=== PATIENT | male | born 1975 | race Caucasian/White ===

== ENCOUNTER 2020-06-22 19:58 | Observation (INO) | payer BC ==
--- OUTSIDE RECORDS SUMMARY | 2020-06-22 20:01 | XMS REPORT | Continuity of Care Document ---
:1975 Author Organization [facility] t Address [address] [place] [address] Care Team Providers Name Role Phone Ita Royal MD Attending Clinician Problems This patient has no known problems. Allergies, Adverse Reactions, Alerts This patient has no known allergies or adverse reactions. Medications This patient has no known medications. Procedures This patient has no known procedures. Encounters Start End Encounter Admission Attending Care Care Encounter Source Date/Time Date/Time Type Type Clinicians Facility Department ID 2020-05-30 2020-05-30 [facility] [id number] 10:30:00 23:59:00 Encounter Alton fontanez [id number] Amanda [id number] [place] [id number] Results This patient has no known results.
[2020-06-22 21:11] LABS: Absolute Lymphocytes (CBC) 2.2 K/uL (0.7-4.9); Basophils % 0.5 % (0-1.3); Hematocrit 48.6 % (39.6-49.0); Lymphocytes % 27.4 % (15.3-44.8); MPV 9.5 fL (7.6-11.3); RBC Red Blood Cell Count 5.55 M/uL (4.33-5.43)
[2020-06-22 21:25] LABS: Bilirubin Direct 0.1 mg/dL (0-0.2); Bilirubin Total 0.4 mg/dL (0.2-1.0)
--- NOTE | 2020-06-22 23:51 | EDPHYS ---
Physician Documentation [facility] Name: Ranjeet rWay Jr Age: 45 yrs Sex: Male : 1975 Arrival Date: 06/22/2020 Time: 20:06 Bed 7 Private MD: Dea Smart ED Physician Angus Azul HPI: 06/22 20:40 This 45 yrs old Male presents to ER via Ambulatory with complaints of Rectal rn Bleeding, Post Surgical Bleeding. 20:40 The patient presents to the emergency department with bleeding from the rectum/anus. rn Onset: The symptoms/episode began/occurred 2 day(s) ago. Context: the patient is post surgical. Modifying factors: The symptoms are alleviated by nothing, The symptoms are aggravated by bowel movement. The patient has not experienced similar symptoms in the past. The patient has been recently seen by a physician:. Reports just had colonoscopy this past Tuesday, was spotting , stopped, restarted aspirin, then started to pass bright red blood with clots for 2 days. Is lightheaded and concerned. NO syncope/sob. Reports takes aspirin due to elevated RBC. . Historical: - Allergies: 20:23 No Known Allergies; jd3 - Home Meds: 20:23 lisinopril 2.5 mg Oral tab [Active]; rosuvastatin oral oral [Active]; aspirin Oral jd3 [Active]; - PMHx: 20:23 Hypertension; high red blood cells; High Cholesterol; jd3 - PSHx: 20:23 teeth; left arm; jd3 - Immunization history:: Adult Immunizations up to date. - Social history:: Smoking status: Patient denies any tobacco usage or history of. - Family history:: not pertinent. - Hospitalizations: : No recent hospitalization is reported. ROS: 20:40 Constitutional: Negative for fever, chills, and weight loss, Eyes: Negative for injury, rn pain, redness, and discharge, Neck: Negative for injury, pain, and swelling, Cardiovascular: Negative for chest pain, palpitations, and edema, Respiratory: Negative for shortness of breath, cough, wheezing, and pleuritic chest pain, Abdomen/GI: Negative for nausea, vomiting, diarrhea, and constipation, MS/Extremity: Negative for injury and deformity, Skin: Negative for injury, rash, and discoloration, Neuro: Negative for headache, weakness, numbness, tingling, and seizure. Exam: 20:40 Constitutional: This is a well developed, well nourished patient who is awake, alert, rn and in no acute distress. Head/Face: Normocephalic, atraumatic. Eyes: Normal conjunctivae Cardiovascular: Regular rate and rhythm. No pulse deficits. Respiratory: No increased work of breathing, no retractions or nasal flaring. Abdomen/GI: soft, non-tender MS/ Extremity: Pulses equal, no cyanosis. Neurovascular intact. Full, normal range of motion. Equal circumference. Neuro: Awake and alert, GCS 15 Vital Signs: 20:23 BP 173 / 84; Pulse 78; Resp 18 S; Temp 98.7(O); Pulse Ox 100% on R/A; Weight 97.52 kg jd3 (R); Height 6 ft. 1 in. (185.42 cm) (R); Pain 0/10; 23:31 BP 135 / 84; Pulse 85; Resp 18; Pulse Ox 98% on R/A; mg2 20:23 Body Mass Index 28.37 (97.52 kg, 185.42 cm) jd3 MDM: 20:28 Patient medically screened. rn 23:18 Differential diagnosis: bleeding from polyp removal site, anemia. Data reviewed: vital rn signs, nurses notes, lab test result(s), radiologic studies, CT scan, and as a result, I will admit patient. Counseling: I had a detailed discussion with the patient and/or guardian regarding: the historical points, exam findings, and any diagnostic results supporting the discharge/admit diagnosis, lab results, radiology results, the need for further work-up and treatment in the hospital. ED course: Awaiting call back from Patient's GI doctor who performed the colonoscopy this week. . 23:38 ED course: Contacted Dr. Royal [facility] who performed the procedure, states rn regretfully unable to take patient as transfer as has previous commitments today and tomorrow. Requests patient be admitted here and anticipates withholding aspirin will allow to stop on its own. Will admit to Hospitalist service and consult Dr. Bean. Bleeding is already improving. 06/22 20:39 Order name: Basic Metabolic Panel; Complete Time: 21:35 rn 06/22 20:39 Order name: CBC with Diff; Complete Time: 21:35 rn 06/22 20:39 Order name: Hepatic Function; Complete Time: 21:35 rn 06/22 20:39 Order name: Lipase; Complete Time: 21:35 rn 06/22 20:39 Order name: CT Abd/Pelvis - IV Contrast Only rn 06/22 20:39 Order name: Type And Screen rn 06/22 20:39 Order name: IV Saline Lock; Complete Time: 21:04 rn 06/22 20:39 Order name: Labs collected and sent; Complete Time: 21:04 rn Administered Medications: No medications were administered Disposition: 06/22/20 23:51 Hospitalization ordered by Doug Azul for Observation. Preliminary diagnosis is Rectal bleeding s/p colonscopy and polyp removal. - Bed requested for Telemetry/MedSurg (observation). - Status is Observation. mg2 - Condition is Stable. - Problem is new. - Symptoms have improved. Signatures: Dispatcher [employer] EDMS Angus Azul MD MD rn Garcia, Cindy, RN RN Lupillo Goodson RN RN jJak Madsen RN RN mg2 Corrections: (The following items were deleted from the chart) 06/23 00:11 06/22 23:51 Hospitalization Ordered by Doug Azul MD for Observation. Preliminary cg diagnosis is Rectal bleeding s/p colonscopy and polyp removal. Bed requested for Telemetry/MedSurg (observation). Status is Observation. Condition is Stable. Problem is new. Symptoms have improved. rn 06/23 00:29 00:11 06/22/2020 23:51 Hospitalization Ordered by Doug Azul MD for Observation. mg2 Preliminary diagnosis is Rectal bleeding s/p colonscopy and polyp removal. Bed requested for Telemetry/MedSurg (observation). Status is Observation. Condition is Stable. Problem is new. Symptoms have improved. cg
--- NOTE | 2020-06-22 23:51 | ER ---
Nurse's Notes [facility] Name: Ranjeet Wray Jr Age: 45 yrs Sex: Male : 1975 Arrival Date: 06/22/2020 Time: 20:06 Bed 7 Private MD: Dea Smart Diagnosis: Rectal bleeding s/p colonscopy and polyp removal Presentation: 06/22 20:17 Chief complaint: Patient states: "i have been bleeding all day. every time I pass gas jd3 or have a bm I bleed. I had a colonoscopy on Tuesday and I was only spotting, but today it has been every time I go to the restroom. my GI doc already knows, but I didn't want it to get to late and have me gets worse. on Tuesday they removed a growth.". Coronavirus screen: At this time, the client does not indicate any symptoms associated with coronavirus-19. Ebola Screen: Patient negative for fever greater than or equal to 101.5 degrees Fahrenheit, and additional compatible Ebola Virus Disease symptoms. Initial Sepsis Screen: Does the patient meet any 2 criteria? No. Patient's initial sepsis screen is negative. Does the patient have a suspected source of infection? No. Patient's initial sepsis screen is negative. Risk Assessment: Do you want to hurt yourself or someone else? Patient reports no desire to harm self or others. Onset of symptoms was June 22, 2020. 20:17 Method Of Arrival: Ambulatory jd3 20:17 Acuity: ZION 3 jd3 Historical: - Allergies: 20:23 No Known Allergies; jd3 - Home Meds: 20:23 lisinopril 2.5 mg Oral tab [Active]; rosuvastatin oral oral [Active]; aspirin Oral jd3 [Active]; - PMHx: 20:23 Hypertension; high red blood cells; High Cholesterol; jd3 - PSHx: 20:23 teeth; left arm; jd3 - Immunization history:: Adult Immunizations up to date. - Social history:: Smoking status: Patient denies any tobacco usage or history of. - Family history:: not pertinent. - Hospitalizations: : No recent hospitalization is reported. Screenin:43 Abuse screen: Denies threats or abuse. Nutritional screening: No deficits noted. ea Tuberculosis screening: No symptoms or risk factors identified. Fall Risk None identified. Assessment: 20:42 General: Appears in no apparent distress. Behavior is calm, cooperative, appropriate ea for age. Pain: Denies pain. Neuro: Level of Consciousness is awake, alert, obeys commands, Oriented to person, place, time. Cardiovascular: Patient's skin is warm and dry. Respiratory: Airway is patent Respiratory effort is even, unlabored, Respiratory pattern is regular, symmetrical. Derm: Skin is intact, Skin is dry, Skin is pale. 21:39 Reassessment: Patient and/or family updated on plan of care and expected duration. Pain ea level reassessed. Patient is alert, oriented x 3, equal unlabored respirations, skin warm/dry/pink. 22:15 Reassessment: Patient and/or family updated on plan of care and expected duration. Pain ea level reassessed. Patient is alert, oriented x 3, equal unlabored respirations, skin warm/dry/pink. Pt taken to CT. 23:31 Reassessment: Patient appears in no apparent distress at this time. Patient and/or mg2 family updated on plan of care and expected duration. Pain level reassessed. Patient is alert, oriented x 3, equal unlabored respirations, skin warm/dry/pink. 23:31 Reassessment: Patient and/or family updated on plan of care and expected duration. Pain ea level reassessed. Patient is alert, oriented x 3, equal unlabored respirations, skin warm/dry/pink. Provider at bedside updating pt on plan of care. Vital Signs: 20:23 BP 173 / 84; Pulse 78; Resp 18 S; Temp 98.7(O); Pulse Ox 100% on R/A; Weight 97.52 kg jd3 (R); Height 6 ft. 1 in. (185.42 cm) (R); Pain 0/10; 23:31 BP 135 / 84; Pulse 85; Resp 18; Pulse Ox 98% on R/A; mg2 20:23 Body Mass Index 28.37 (97.52 kg, 185.42 cm) jd3 ED Course: 20:06 Patient arrived in ED. am2 20:06 Dea Smart MD is Private Physician. am2 20:21 Triage completed. jd3 20:24 Arm band placed on. jd3 20:28 Angus Azul MD is Attending Physician. rn 20:40 Cathy Broussard, RN is Primary Nurse. ea 20:43 Patient has correct armband on for positive identification. Placed in gown. Bed in low ea position. Call light in reach. Side rails up X 1. Pulse ox on. NIBP on. 20:55 Inserted saline lock: 20 gauge in right forearm, using aseptic technique. ,using ea aseptic technique. Per Taryn DURHAM Blood collected. 22:31 CT Abd/Pelvis - IV Contrast Only In Process Unspecified. EDMS 23:50 Doug Azul MD is Hospitalizing Provider. rn Administered Medications: No medications were administered Outcome: 23:51 Decision to Hospitalize by Provider. rn 06/23 00:29 Patient left the ED. mg2 Signatures: Dispatcher [employer] EDMS Angus Azul MD MD rn Moreno, Amanda am2 Antunez, Elena, RN Lupillo Marcelino ea, RN RN jJak Madsen RN RN mg2
--- NOTE | 2020-06-23 00:11 | P.HP ---
Certification for Inpatient Patient admitted to: Observation With expected LOS: <2 Midnights Patient will require the following post-hospital care: None Practitioner: I am a practitioner with admitting privileges, knowledge of patient current condition, hospital course, and medical plan of care. Services: Services provided to patient in accordance with Admission requirements found in Title 42 Section 412.3 of the Code of Federal Regulations <Benito Hussein - Last Filed: 06/23/20 00:06> Patient History Date of Service: 06/23/20 Reason for admission: GIB History of Present Illness: 45-year-old male history of hypertension hyperlipidemia had a colonoscopy on Tuesday of this week. Patient some mild spotting after the colonoscopy but the bleeding stopped shortly after. Patient had no bleeding for couple of days and then began taking his baby aspirin which she takes for elevated red blood cell count. After he began taking aspirin he started noticed today that he is having some bright red blood per rectum and passing some clots. Patient was then evaluated in the emergency department. Patient had colonoscop y with Dr. Herbert who regrettably but unable to accept the patient tonight or tomorrow but stated that the patient was still having bleeding and needed further evaluation he had happily accept the patient on Tuesday. Patient's hemoglobin in the emergency department was 16. Patient reports the bleeding has slowed down at this time. ED provider wishes to admit patient for observation. 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 - Family History Family History: Reviewed- Non-Contributory - Social History Smoking Status: Never smoker Alcohol use: No CD- Drugs: No Caffeine use: Yes Place of Residence: Home <Benito Hussein - Last Filed: 06/23/20 00:06> Date of Service: 06/26/20 <Doug Azul - Last Filed: 06/26/20 20:35> Allergies No Known Allergies Allergy (Verified 06/23/20 00:53) Home Medications: Aspirin [Adult Low Dose Aspirin EC] 81 mg PO DAILY 06/23/20 Rosuvastatin [Crestor*] 10 mg PO BEDTIME 06/23/20 lisinopriL [Prinivil*] 2.5 mg PO DAILY 06/23/20 Pantoprazole [Protonix Tab] 40 mg PO DAILY 30 Days #30 tab 06/24/20 Review of Systems 10-point ROS is otherwise unremarkable Gastrointestinal: Hematochezia <Benito Hussein - Last Filed: 06/23/20 00:06> Physical Examination - Physical Exam General: Alert, In no apparent distress HEENT: Atraumatic, PERRLA, Mucous membr. moist/pink Neck: Supple Respiratory: Clear to auscultation bilaterally, Normal air movement Cardiovascular: Regular rate/rhythm, Normal S1 S2 Gastrointestinal: Normal bowel sounds, No tenderness Musculoskeletal: No tenderness Integumentary: No rashes Neurological: Normal speech, Normal strength at 5/5 x4 extr, Normal tone, Normal affect - Studies Laboratory Data (last 24 hrs) 06/22/20 20:50: WBC 7.9, Hgb 16.6, Hct 48.6, Plt Count 177 06/22/20 20:50: Sodium 142, Potassium 4.0, BUN 15, Creatinine 1.03, Glucose 88, Total Bilirubin 0.4, AST 20, ALT 41, Alkaline Phosphatase 80, Lipase 68 L <Benito Hussein - Last Filed: 06/23/20 00:06> Assessment and Plan - Plan Assessment Gastrointestinal hemorrhage S/P colonoscopy Elevated red blood cell count Hypertension Hyperlipidemia Plan Gastrointestinal hemorrhage S/P colonoscopy: Hemoglobin 16 in the emergency department. Will repeat labs in the morning. Clear liquid diet for now in case patient requires an another colonoscopy for evaluation. Gastroenterology has been consulted. If patient is still having bleeding after discontinuation of aspirin and is stable his life skills coordinator will accept him as a transfer Tuesday. SCD for DVT prophylaxis as patient is having active bleeding. Elevated red blood cell count: Patient is being worked up by hematology for this. Has appointment to receive results this week. Hold daily aspirin at this time due to active bleeding. Hypertension: Have continued patient's home medications. Hyperlipidemia: Have continued patient's home medications. Discharge Plan: Home Plan to discharge in: 24 Hours - Advance Directives Does patient have a Living Will: No Does patient have a Durable POA for Healthcare: No - Code Status/Comfort Care Code Status Assessed: Yes (Patient is full code) Critical Care: No Time Spent Managing Pts Care (In Minutes): 55 <Benito Hussein - Last Filed: 06/23/20 00:06> Physician Review Additional Text: I reviewed the plan of care for this patient on 06/23/20 by Benito Boothe, and I agree with the management as noted above. <Doug Azul - Last Filed: 06/26/20 20:35>
[2020-06-23] MEDS ORDERED: ACETAMINOPHEN 500 MG TAB PO PRN (00:36)
[2020-06-23 03:09] VITALS: BMI 28.5
[2020-06-23 03:41] LABS: Absolute Lymphocytes (CBC) 2.8 K/uL (0.7-4.9); Basophils % 0.3 % (0-1.3); Hematocrit 46.8 % (39.6-49.0); MPV 9.4 fL (7.6-11.3); RBC Red Blood Cell Count 5.31 M/uL (4.33-5.43)
[2020-06-23] MEDS ORDERED: MORPHINE 2 MG/ML SYR IV PRN (04:32)
[2020-06-23] MEDS ORDERED: SODIUM CHLORIDE 0.9% 10ML INJ IV PRN (04:33)
[2020-06-23] MEDS: PANTOPRAZOLE 40 MG INJ IVP SCH ×3 (05:12→20:32)
[2020-06-23] MEDS: ONDANSETRON 4 MG/2 ML VIAL IV PRN ×2 (05:23→11:01)
[2020-06-23] MEDS: lisinopriL 5 MG TAB PO SCH (09:16)
--- NOTE | 2020-06-23 09:50 | RAD REPORT ---
EXAM DESCRIPTION: CT ABDOMEN AND PELVIS WITH CONTRAST CLINICAL HISTORY: S/p colonoscopy this week, bleeding;Abd pain COMPARISON: None Available. TECHNIQUE: CT of the abdomen and pelvis performed following IV administration of iodinated contras t. Arterial phase imaging was only performed of the upper abdomen. Portal venous phase imaging of the abdomen and pelvis. FINDINGS: Lung Bases: The visualized lung bases are clear. Bones: Bilateral L5 pars defects without spondylolisthesis. Mild endplate spondylosis. Abdomen: Liver: The liver has normal size and density. No intrahepatic biliary dilatation. Gallbladder: No calcified gallstones. Spleen, Pancreas, and Adrenal Glands: The spleen, pancreas, and adrenal glands are unremarkable. Kidneys: No hydronephrosis or obstructing calculus. Punctate nonobstructing superior pole left re nal calculus. Vasculature: Aortoiliac atherosclerosis. IVC is unremarkable. Circumaortic left renal vein. The netta l vein is patent. The proximal visceral and renal arteries are patent. Stomach: The stomach and duodenum have normal course. Other: No free intraperitoneal air. No free fluid or lymphadenopathy. Pelvis: Bladder: Urinary bladder is unremarkable. Bowel: No dilated loops of large or small bowel. Focal area of hyperdensity the sigmoid colon only visualized on venous imaging. Appendix: Normal appendix. Pelvis: Prostate is not enlarged. IMPRESSION: 1. Small focal area of hyperdensity in the sigmoid colon only visualized on venous imagi ng. This may be related to previously ingested high-density material however focal area of active ble eding could also produce this appearance. If the patient has persistent GI bleed, nuclear medicine re d blood cell scan could provide additional characterization. This exam was performed according to our departmental dose-optimization program, which includes autom ated exposure control, adjustment of the mA and/or kV according to patient size and/or use of iterati ve reconstruction technique. Electronically signed by: Tone Pineda 06/22/2020 10:52 PM CDT Due to temporary technical issues with the PACS/Fluency reporting system, reports are being signed by the in house radiologist without review as a courtesy to ensure prompt reporting. The interpreting r adiologist is fully responsible for the content of the report.
[2020-06-23] MEDS ORDERED: MORPHINE 4 MG/ML SYR IV PRN (09:52)
[2020-06-23 12:00] LABS: Hematocrit 48.1 % (39.6-49.0)
[2020-06-23] MEDS ORDERED: NA CHLORIDE 0.9% 250 ML IV SCH (16:00)
[2020-06-23] MEDS ORDERED: propofoL 200 MG/20 ML VIAL IV ONE ×2 (17:23→17:37)
[2020-06-23] MEDS ORDERED: LIDOCAINE 1% MPF 5 ML VIAL ONE (17:23)
[2020-06-23] MEDS ORDERED: NA CHLORIDE 0.9% 1,000 ML ONE (18:24)
--- NOTE | 2020-06-23 19:27 | ENDO RPT ---
[address], [address] COLONOSCOPY PROCEDURE REPORT EXAM DATE: 06/23/2020 PATIENT NAME: Ranjeet Wray MR #: [id number] BIRTHDATE: 1975 ATTENDING: Sathya Bean Dr STATUS: inpatient GRINDING OPERATOR: Kevin Betancourt CST and Harriet Nam RN INDICATIONS: The patient is a 45 yr old Male here for a colonoscopy due to hematochezia - s/p colonoscopy with polypectomy on 06-18-20 in [place], [place] by outside GI PROCEDURE PERFORMED: Colonoscopy for control of bleeding, Colonoscopy with directed submucosal injection(s) any substance, and Colon w/ endoclip MEDICATIONS: Per Anesthesia. ESTIMATED BLOOD LOSS: None CONSENT: The patient understands the risks and benefits of the procedure and understands that these risks include, but are not limited to: sedation, allergic reaction, infection, perforation and/or bleeding. Alternative means of evaluation and treatment include, among others: physical exam, x-rays, and/or surgical intervention. The patient elects to proceed with this endoscopic procedure. DESCRIPTION OF PROCEDURE: During intra-op preparation period all mechanical medical equipment was checked for proper function. Hand hygiene and appropriate measures for infection prevention was taken. Procedure, possible complications, alternatives including, but not limited to possibility of bleeding, perforation, tear, infection, sepsis, need for surgery, need for blood transfusion, were explained to the patient. After the risks, benefits and alternatives of the procedure were thoroughly explained, Informed consent was verified, confirmed and timeout was successfully executed by the treatment team. The patient was placed in the left lateral position. A digital rectal exam was performed and revealed an enlarged prostate. After appropriate level of anesthesia, the scope was passed. The EG-[id number] ([id number]) and [id number] ([id number]) endoscope was introduced through the anus and advanced to the transverse colon. The quality of the prep was poor. The instrument was then slowly withdrawn as the colon was fully examined. Scope withdrawal time was 9 minutes. COLON FINDINGS: Bright red blood and blood clots from rectum to splenic flexure. A medium sized bleeding ulcer was found. Complete hemostasis was achieved by placing a single [place] Resolution hemoclip on the bleeding site(s). Retroflexed views revealed no abnormalities. The scope was then completely withdrawn from the patient and the procedure terminated. ADVERSE EVENTS: There were no complications. IMPRESSIONS: 1. Bright red blood and blood clots from rectum to splenic flexure 2. Bleeding vessel at prior polypectomy site (20 colonoscopy), with (1:10,000). Complete hemostasis was achieved by placing a single hemoclip on the bleeding site(s) 2. clear liquid diet RECALL: Sathya Bean Dr eSigned: Sathya Bean Dr 06/23/2020 7:27 PM cc: CPT CODES: ICD9 CODES: 1. 600.0 Hypertrophy (benign) of prostate 2. 569.82 Ulceration of intestine 3. 578.9 Hemorrhage of gastrointestinal tract, unspecified PATIENT NAME: NilsRanjeet weiner MR#: [id number]
[2020-06-23] MEDS ORDERED: EPINEPHRINE/PF 1 MG/ML AMP ONE (19:48)
[2020-06-23] MEDS: ROSUVASTATIN 10 MG TAB PO SCH ×2 (20:32→20:42)
--- NOTE | 2020-06-23 23:17 | CON ---
Date of Consultation: 06/23/2020 Reason For Consultation: Hematochezia after status post colonoscopy with polypectomy, June 18, 2029, in [place], [place] by outside GI. History Of Present Illness: The patient is a 45-year-old white male with history of hypertension, hyperlipidemia, and unexplained elevated hemoglobin level. The patient presented to hospital due to hematochezia. The patient underwent colonoscopy on June 18, 2020, last Tuesday, with a large rectal polyp removed with snare polypectomy as per report, diverticulosis and internal hemorrhoids noted. The patient started retaking aspirin for high unexplained hemoglobin level 2 days after procedure. The patient started having bleeding a couple of days ago prior to admission and came to the hospital for further evaluation and therapy. Past Medical History: Significant for hypertension, hyperlipidemia, and left arm surgery. The patient has a history of high hemoglobin level that was unexplained. He does have a family history of leukemia in 5 paternal uncles and 1 paternal aunt, not in his father. Medications: Include Tylenol, Prinivil, morphine, Zofran, Protonix, Crestor, IV fluids. Allergies: NKDA. Social History: He is . Three children. No tobacco. No alcohol. Family History: Father with diabetes, hypertension, alive. Mother alive with diabetes, hypertension. He has 5 paternal uncles with leukemia, 1 paternal aunt with leukemia, and he has a high elevated hemoglobin level himself. It is unexplained and being worked up by Hematology at this time. Review of Systems: The patient has hematochezia, some lightheadedness, but no syncope. No nausea, vomiting, fevers, chills, night sweats, chest pain, shortness of breath, seizure, syncope, lower extremity edema, muscle aches, joint aches, backaches, depression, anxiety. The patient did have hematochezia and he has left upper quadrant pain, which he is having worked up as an outpatient too. It appears unexplained with chest CT scan done has been unrevealing. Physical Examination: Vital Signs: The patient is 6 feet 1 inch, 216 pounds, BMI 28.5 kg/sq m. He has a temperature of 97.4 degrees Fahrenheit, pulse 77, respirations 16, blood pressure 117/66, O2 saturation 100%. General: He is a well-nourished, well-developed male, in no acute distress, lying in bed. HEENT: Normocephalic, atraumatic. Anicteric. Pupils equal, round, and reactive to light. Extraocular movements intact. Oropharynx clear. Neck: Supple. No masses. Respirations: Clear to auscultation bilaterally. Cardiac: Regular rate and rhythm. No gallops or rubs. Abdomen: Positive bowel sounds. Not hyperactive. Soft. Mild left upper quadrant pain. Mild guarding, but no rebound or Masterson sign. No peritoneal signs. Extremities: No clubbing, cyanosis, or edema. 2+ pulses. Neurologic: Alert and oriented x3. Grossly nonfocal. 5/5 motor strength. Sensation intact to light touch. Laboratory Data: The patient has a hemoglobin of 16.3, on admission of 16.6, then down to 16.1, but now back up to 16.3; hemoglobin 8.2; hematocrit of 46.8; MCV of 88.1; platelet count 174; polys of 55%; lymphocytes 34%; monocytes 9%; eosinophils 1%. The patient has a sodium 142, potassium 4.0, chloride 109, bicarb 29, BUN of 15, creatinine of 1.03, glucose 88, total bilirubin 0.4, direct bilirubin 0.1, AST of 20, ALT of 41, alkaline phosphatase 80, total protein 8.0, albumin 4.0, lipase 68. The patient has CT abdomen and pelvis, which revealed small focal hyperdensity in the sigmoid colon, no bleeding seen, GI bleeding scan recommended, otherwise negative. Impression: 1. Hematochezia, status post colonoscopy on June 18, 2020, in [place], [place] by outside GI with a large rectal polyp removed, another possible polyp(s) and diverticulosis. The patient started aspirin 2 days after procedure for his high hemoglobin. 2. Unexplained high hemoglobin level with a family history of leukemia in 5 per paternal uncles and 1 paternal aunt. Father does not have leukemia it appears. 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 3. History of hypertension, hyperlipidemia, unexplained high hemoglobin, and left arm surgery. Recommendations: 1. Serial H and H. Transfuse p.r.n. 2. Transfuse platelets. 3. Urgent colonoscopy for control of bleeding. YUN/MICHAEL Voice ID: [id number] Report ID: [id number] MTDD
[2020-06-24 05:50] LABS: Absolute Lymphocytes (CBC) 1.9 K/uL (0.7-4.9); Basophils % 0.5 % (0-1.3); Hematocrit 42.4 % (39.6-49.0); Lymphocytes % 21.5 % (15.3-44.8); MPV 9.2 fL (7.6-11.3); RBC Red Blood Cell Count 4.79 M/uL (4.33-5.43)
[2020-06-24 06:09] LABS: Potassium 4.2 mmol/L (3.5-5.1)
[2020-06-24] MEDS: lisinopriL 5 MG TAB PO SCH (08:28)
[2020-06-24] MEDS: PANTOPRAZOLE 40 MG INJ IVP SCH (08:29)
[2020-06-24] MEDS: Ringers Lactate 1,000 ML IV ONE ×2 (14:05→14:18)
[2020-06-24] MEDS ORDERED: MIDAZOLAM HCL 2 MG/2 ML INJ ONE (14:18)
[2020-06-24] MEDS ORDERED: LIDOCAINE 1% MPF 5 ML VIAL ONE (14:18)
[2020-06-24] MEDS ORDERED: propofoL 200 MG/20 ML VIAL IV ONE (14:18)
--- NOTE | 2020-06-24 14:29 | ENDO RPT ---
[address], [address] EGD PROCEDURE REPORT EXAM DATE: 06/24/2020 PATIENT NAME: Ranjeet Wray MR#: [id number] BIRTHDATE: 1975 ATTENDING: Sathya Bean Dr STATUS: inpatient - 7 HEAT AND FROST INSULATOR: Charla Chavez RN and Letitia De CST INDICATIONS: The patient is a 45 yr old Male here for an EGD due to left upper quadrant abdominal pain PROCEDURE PERFORMED: EGD with biopsy MEDICATIONS: Per Anesthesia. TOPICAL ANESTHETIC: none CONSENT: The patient understands the risks and benefits of the procedure and understands that these risks include, but are not limited to: sedation, allergic reaction, infection, perforation and/or bleeding. Alternative means of evaluation and treatment include, among others: physical exam, x-rays, and/or surgical intervention. The patient elects to proceed with this endoscopic procedure. DESCRIPTION OF PROCEDURE: During intra-op preparation period all mechanical medical equipment was checked for proper function. Hand hygiene and appropriate measures for infection prevention was taken. Procedure, possible complications, and alternatives including but not limited to the possibility of bleeding, perforation, tear, infection, sepsis, need for surgery, need for blood transfusion, and anesthesia related complications were explained to the patient. After the risks, benefits and alternatives of the procedure were thoroughly explained, Informed consent was verified, confirmed and timeout was successfully executed by the treatment team. The patient was placed in the left lateral position. The patient was anesthetized with topical anesthesia. Through the anesthetized oropharyngeal area, the scope was passed without any difficulty. The EG-[id number] ([id number]) endoscope was introduced through the mouth and advanced to the third portion of the duodenum. Retroflexed views revealed a small hiatal hernia. The gastroscope was then slowly withdrawn and removed. A small hiatal hernia was found. Multiple (6) erosions with surrounding edema were found in the antrum. Multiple biopsies were obtained and sent to pathology. Small bowel biopsies obtained . ADVERSE EVENTS: There were no complications. IMPRESSIONS: 1. Small hiatal hernia 2. Multiple (6) erosions with surrounding edema in the antrum, s/p biopsies 3. Small bowel biopsies obtained RECOMMENDATIONS: 1. await biopsy results 2. acid suppression therapy REPEAT EXAM: Sathya Bean Dr eSigned: Sathya Bean Dr 06/24/2020 2:28 PM cc: Tolu Omer CPT CODES: ICD9 CODES: PATIENT NAME: Ranjeet Wray MR#: [id number]
[2020-06-24 14:38] VITALS: O2SAT 98
[2020-06-24 18:02] VITALS: BP 108/67; TEMP 97.1
--- NOTE | 2020-06-24 20:23 | P.DS ---
Admission Date: 06/23/20 Discharge Date: 06/24/20 Disposition: ROUTINE DISCHARGE Discharge Condition: GOOD Reason for Admission: GIB Consultations: GI - Dr. Bean Procedures: Colonoscopy (06/23) Impression: bright red blood and blood clots from rectum to splenic flexure bleeding vessel at prior polypectomy site (06-18-20 c-scope) with complete hemostasis achieved by placing a single hemoclip on bleeding site EGD (06/24) Impression: 1. small hiatal hernia 2. multiple (6) erosions with surrounding edema in the antrum, s/p biopsies 3. small bowel biopsies obtained Brief History of Present Illness: 45-year-old male history of hypertension hyperlipidemia had a colonoscopy on Tuesday of this week. Patient some mild spotting after the colonoscopy but the bleeding stopped shortly after. Patient had no bleeding for couple of days and then began taking his baby aspirin which he takes for elevated red blood cell count. After he began taking aspirin he started noticed today that he is having some bright red blood per rectum and passing some clots. Patient was then evaluated in the emergency department. Patient had colonoscopy with Dr. Herbert who regrettably but unable to accept the patient due to being out of town Hospital Course: Patient initially reported bleeding slowed down in ED, however he began to bleed more after getting to the medical floor. GI, Dr. Bean, was consulted and took patient for colonoscopy on 06/23 (results above), patient reported decreased bleeding per rectum and improvement in abdominal discomfort, but not completely. He was taken for EGD by Dr. Bean on 06/24 (results above). Due to the findings, patient was started on protonix. After EGD, patient reported feeling much better and had minimal LUQ / epigastric discomfort. He was discharged home and instructed to f/u with PCP and Dr. Bean for biopsy results. Vital Signs/Physical Exam: Temp Pulse Resp BP Pulse Ox 97.1 F 75 17 108/67 96 06/24/20 16:00 06/24/20 16:00 06/24/20 16:00 06/24/20 16:06/24/20 16:00 General: Alert, In no apparent distress HEENT: Mucous membr. moist/pink, Sclerae nonicteric Neck: Supple, JVD not distended Respiratory: Clear to auscultation bilaterally, Normal air movement Cardiovascular: No edema, Regular rate/rhythm, Normal S1 S2 Capillary refill: <2 Seconds Gastrointestinal: Normal bowel sounds, Soft and benign, Non-distended, Tenderness (very mild LUQ) Musculoskeletal: No erythema, No tenderness Integumentary: No rashes Neurological: Normal speech, Normal affect Laboratory Data at Discharge: WBC 8.7 K/uL (4.3-10.9) 06/24/20 05:23 Hgb 14.6 g/dL (13.6-17.9) 06/24/20 05:23 Hct 42.4 % (39.6-49.0) 06/24/20 05:23 Plt Count 199 K/uL (152-406) 06/24/20 05:23 Sodium 142 mmol/L (136-145) 06/24/20 05:23 Potassium 4.2 mmol/L (3.5-5.1) 06/24/20 05:23 BUN 9 mg/dL (7-18) 06/24/20 05:23 Creatinine 0.98 mg/dL (0.55-1.3) 06/24/20 05:23 Glucose 98 mg/dL (74-106) 06/24/20 05:23 Total Bilirubin 0.4 mg/dL (0.2-1.0) 06/22/20 20:50 AST 20 U/L (15-37) 06/22/20 20:50 ALT 41 U/L (12-78) 06/22/20 20:50 Alkaline Phosphatase 80 U/L (45-117) 06/22/20 20:50 Lipase 68 U/L (73-393) L 06/22/20 20:50 Home Medications: Aspirin [Adult Low Dose Aspirin EC] 81 mg PO DAILY 06/23/20 Rosuvastatin [Crestor*] 10 mg PO BEDTIME 06/23/20 lisinopriL [Prinivil*] 2.5 mg PO DAILY 06/23/20 Pantoprazole [Protonix Tab] 40 mg PO DAILY 30 Days #30 tab 06/24/20 New Medications: Pantoprazole [Protonix Tab] 40 mg PO DAILY 30 Days #30 tab Patient Discharge Instructions: follow up with PCP within 1 week. Follow up with GI within 1-2 weeks (Dr. Bean) to review biopsy results Diet: Regular Activity: Ad logan Followup: Sathya Bean MD [ASSOCIATE-ACTIVE - CAN ADMIT] - (Call to make an appointment. ) Time spent managing pt's care (in minutes): 40
== END 2020-06-24 18:37 | disposition home or self-care (01) ==
LOC: ER 19:58 → 2ND 06-23 00:01
PROVIDERS: ADMIT Hospitalist; ATTEND Hospitalist
PROC: 0DB88ZX Excision of Small Intestine, Via Natural or Artificial Opening Endoscopic, Diagnostic (ICD-10-PCS; 2020-06-23)
PROC: 0W3P8ZZ Control Bleeding in Gastrointestinal Tract, Via Natural or Artificial Opening Endoscopic (ICD-10-PCS; 2020-06-23)
PROC: 0DB68ZX Excision of Stomach, Via Natural or Artificial Opening Endoscopic, Diagnostic (ICD-10-PCS; principal; 2020-06-23 17:00)
DX: K91.840 Postprocedural hemorrhage of a digestive system organ or structure following a digestive system procedure (principal); Y84.9 Medical procedure, unspecified as the cause of abnormal reaction of the patient, or of later complication, without mention of misadventure at the time of the procedure; K63.3 Ulcer of intestine; K25.9 Gastric ulcer, unspecified as acute or chronic, without hemorrhage or perforation; R71.8 Other abnormality of red blood cells; K29.50 Unspecified chronic gastritis without bleeding; K29.80 Duodenitis without bleeding; K57.90 Diverticulosis of intestine, part unspecified, without perforation or abscess without bleeding; K44.9 Diaphragmatic hernia without obstruction or gangrene; K64.8 Other hemorrhoids; N40.0 Benign prostatic hyperplasia without lower urinary tract symptoms; I10 Essential (primary) hypertension; E78.5 Hyperlipidemia, unspecified; E78.00 Pure hypercholesterolemia, unspecified; Z20.828 Contact with and (suspected) exposure to other viral communicable diseases; Z79.82 Long term (current) use of aspirin; Z80.6 Family history of leukemia; Z82.49 Family history of ischemic heart disease and other diseases of the circulatory system
CPT/HCPCS: 43239; 45382; 36430; 85025 ×3; 80048 ×2; 36415 ×2; 86900; 86850; 88312; 86901; 80076; 88305; 85018; 85014; 83690; 74177; 99284; Q9967; J2704 ×3; J0171; C9113 ×5; J2250; J2270; G0378 ×5; P9035; J7120; J7050; J7030; J2405 ×2